=== PATIENT | female | born 1985 | race Asian ===

== ENCOUNTER 2017-02-17 14:48 | Emergency (ER) | payer BC ==
[~2017-02-17] VITALS: Ht 160 cm; Wt 51.1 kg
[2017-02-17 14:49] VITALS: BP 111/61
[2017-02-17] MEDS ORDERED: IBUPROFEN 600 MG TAB PO ONE (15:30)
[2017-02-17] MEDS ORDERED: IBUP600T26 PO (15:33)
== END 2017-02-17 15:48 | disposition home or self-care (01) ==
LOC: M ED 15:44
DX: S39.012A Strain of muscle, fascia and tendon of lower back, initial encounter (principal); X50.1XXA Overexertion from prolonged static or awkward postures, initial encounter; Y92.099 Unspecified place in other non-institutional residence as the place of occurrence of the external cause; Y93.89 Activity, other specified; Y99.9 Unspecified external cause status